=== PATIENT | male | born 1960 | race Caucasian/White ===

== ENCOUNTER 2021-09-08 01:35 | Emergency (ER) | payer BC ==
[~2021-09-08] VITALS: Ht 180.3 cm; Wt 104.3 kg
[2021-09-08] MEDS ORDERED: AMLODIPINE-OLM1 EAC3 (01:41)
[2021-09-08] MEDS ORDERED: COZAAR50 MG (01:41)
[2021-09-08] MEDS ORDERED: KETO10TA2 PO (04:25)
[2021-09-08] MEDS ORDERED: CORTISPORIN EAR10 M1 OPHT (04:25)
== END 2021-09-08 04:39 | disposition home or self-care (01) ==
LOC: ER 01:35
DX: H60.8X1 Other otitis externa, right ear (principal)